=== PATIENT | female | born 2000 | race American Indian/Alaskan Native ===

== ENCOUNTER 2020-10-01 19:17 | Inpatient (IN) | payer MEDICAID ==
[2020-10-01] MEDS ORDERED: LACTATED RINGERS 1,000 ML ONE (20:14)
[2020-10-01] MEDS ORDERED: ePHEDrine SULFATE 50 MG/1 ML INJ IV PRN ×2 (20:23→20:26)
[2020-10-01] MEDS ORDERED: NALOXONE 2 MG/2 ML INJ IV PRN (20:23)
[2020-10-01] MEDS ORDERED: MINERAL OIL 30 ML ORAL LIQD PO PRN (20:26)
[2020-10-01] MEDS ORDERED: TERBUTALINE 1 MG/1 ML INJ SUB-Q PRN (20:26)
[2020-10-01] MEDS ORDERED: NalbUPHINE 10 MG/1 ML INJ IV PRN (20:26)
[2020-10-01] MEDS ORDERED: fentaNYL 100 MCG/2 ML INJ IV PRN (20:26)
--- NOTE | 2020-10-01 20:26 | History and Physical Report ---
History of Present Illness Date of examination: 10/01/20 Date of admission: 10/01/20 19:48 Chief complaint: painful ctx History of present illness: at 39.3wk by EDC 10/05/20 per pt report. Pt gives h/o LOF at 4pm and feeling ctx more painful. Admits to movement and denies headache. Denies vaginal bleeding. care at [place] [facility] and pt to deliver at [facility] in [place]. Pt desires epidural. Past History Past Medical History: no pertinent history Past Surgical History: no surgical history Social history: no significant social history - Obstetrical History Expected Date of Delivery: 10/05/20 Actual Gestation: 39 Week(s) 3 Day(s) : 2 Number of Living Children: 1 Medications and Allergies Allergies Allergy/AdvReac Type Severity Reaction Status Date / Time No Known Allergies Allergy Unverified 10/01/20 19:48 Review of Systems All systems: negative (painful ctx and LOF) - Vital Signs Vital signs: Vital Signs Pulse BP Pulse Ox 106 H 119/70 98 10/01/20 19:37 10/01/20 19:37 10/01/20 19:37 Temp Pulse Resp BP Pulse Ox 98.5 F 98 H 18 119/70 100 10/01/20 19:38 10/01/20 20:02 10/01/20 19:38 10/01/20 19:38 10/01/20 20:02 - Physical Exam Breasts: Positive: deferred Cardiovascular: Regular rate Lungs: Positive: Normal air movement Abdomen: Positive: normal appearance, soft Genitourinary (Female): Positive: normal external genitalia Vulva: both: normal Vagina: Positive: normal moisture Uterus: Positive: enlarged (non-tender, gravid) - Obstetrical FHR: category 1 Uterine Contraction Monitor Mode: External Cervical Dilatation: 5 (repeat exam unchanged by me when pt c/o pelvic pressure) Cervical Effacement Percentage: 90 station: -1 now, previously -2 per triage nurse Uterine Contraction Pattern: Irregular Uterine Contraction Intensity: Moderate Results Result Diagrams: 10/01/20 20:20 All other labs normal. Assessment and Plan Term IUP in active labor, GBS unknown and SROM with nitrazene positive per ER nurse 1. Admit to labor and delivery and obtain records 2. If not available, then with check gestational age by ultrasound here at [facility] 3. May have epidural when labs are ready and anesthesiologist already notified 4. Will augment labor when pt comfortable Plan of care discussed with pt; all questions encouraged and answered
[2020-10-01 20:43] LABS: Hematocrit 33.8 % (30.3-42.9); Hemoglobin 11.6 gm/dl (10.1-14.3); Mean Corpuscular HGB Conc 34 % (30-34); Mean Corpuscular Volume 92 fl (79-97); Platelet Count 209 K/mm3 (140-440); Red Blood Count 3.69 M/mm3 (3.65-5.03)
[2020-10-01] MEDS ORDERED: fentaNYL-BUPIV 2 MCG/ML-0.125% 200 MCG/100 ML BAG EPIDURAL SCH (21:00)
[2020-10-01] MEDS ORDERED: OXYTOCIN DRIP 30 UNITS/500 ML BAG IV SCH ×2 (21:00)
--- NOTE | 2020-10-01 21:25 | Ultrasound Report ---
ULTRASOUND OBSTETRIC LIMITED INDICATION / CLINICAL INFORMATION: GESTATIONAL AGE. Clinical Gestational Age (GA) in weeks.days: 39.3 TECHNIQUE: Transabdominal. COMPARISON: None available. FINDINGS: NUMBER: Single PRESENTATION: cephalic MEASUREMENTS: - Biparietal Diameter = 9.0 cm = 36.3 weeks.days - Head Circumference = 32.9 cm = 37.3 weeks.days - Abdominal Circumference = 32.2 cm = 36.1 weeks.days - Femur Length = 7.3 cm = 37.1 weeks.days - Estimated Weight (in grams, if calculated): 2968 +/- 439 g - Heart Rate (beats per minute): 141 ADDITIONAL FINDINGS: None. AVERAGE ULTRASOUND AGE (AUA) in weeks.days = 36.6 IMPRESSION: 1. Single intrauterine with AUA of 36.6 weeks.days 2. No significant sonographic abnormality. Signer Name: Ralph Moya MD Signed: 10/01/2020 9:21 PM Workstation Name: [id number]
[2020-10-01] MEDS ORDERED: AMPICILLIN/NS 2 GM/100 ML 2 GM/100 ML BAG IV ONE (21:26)
[2020-10-01] MEDS ORDERED: miSOPROStol 200 MCG TAB PR PRN (21:26)
[2020-10-01] MEDS ORDERED: LIDOCAINE (2%) 20 MG/1 ML VIAL 20 ML MDV INFILTRATI ONE (21:26)
[2020-10-01] MEDS ORDERED: LACTATED RINGERS 1,000 ML IV SCH (21:30)
--- NOTE | 2020-10-01 21:31 | Anesthesia Consultation ---
Anesthesia Consult and Med Hx Date of service: 10/01/20 - Airway Anesthetic Teeth Evaluation: Good ROM Head & Neck: Adequate Mental/Hyoid Distance: Adequate Mallampati Class: Class II Intubation Access Assessment: Probably Good - Pulmonary Exam CTA: Yes - Cardiac Exam Cardiac Exam: RRR - Pre-Operative Health Status ASA Pre-Surgery Classification: ASA3 Proposed Anesthetic Plan: Epidural - Pulmonary Hx Asthma: No COPD: No Hx Pneumonia: No - Endocrine Hx End Stage Renal Disease: No - Other Systems Hx Alcohol Use: No Hx Obesity: Yes
--- NOTE | 2020-10-01 21:33 | Progress Note ---
Labor Epidural - Labor Epidural Start Time: 21:09 Stop Time: 21:23 Performed by:: NOEL KEEN Procedure: Patient is requesting epidural for labor pain. H&P, and labs reviewed. Procedure explained, questions answered, consent obtained. Patient in sitting position with blood pressure cuff and pulse ox on and working. Timeout performed immediately before start of procedure. Sterile chlorahexadine 0.5% prep/drape. 3 mL 1% lidocaine skin wheal at L[3]-L[4]. 18-gauge Hustead epidural needle advanced to [id number] with saline at 9 cm. 27-gauge spinal needle advanced until clear, free-flowing CSF. Intrathecal dexmedetomidine [5] mcg administered and needle removed. Epidural catheter unable to be threaded, needle + catheter removed together, 3 ml lidocaine injected at L2-3, Hustead advanced to SOHAIL saline at 9 cm, catheter threaded to 15 cm, negative aspiration for blood and csf, negative test dose 3 ml 1.5% lidocaine with epinephrine. Sterile steri-strips and tegaderm applied, followed by tape reinforcement. Patient tolerated procedure well.
--- NOTE | 2020-10-01 23:05 | Event Note ---
Date: 10/01/20 records obtained and HSVII noted and pt when asked with partner asleep whether she was taking any meds and now she admits she was taking the medicine starting with a "V". Pt has no lesions. Pt also asked if she received rhogam with Rh negative as confirmed in the records and she states yes. The remaining prenatals with HIV neg, Rubella immune, RPR non-reactive, Hep BsAg neg, Rh neg and rhogam received at 28.6wks and GBS negative. Normal 1hrgtt also seen. Pt is now comfortable with epidural in progress and pitocin started.
[2020-10-02 00:35] LABS: Amphetamine Screen,Urine PRESUMPTIVE NEGATIVE; Benzodiazepines Screen,Urine PRESUMPTIVE NEGATIVE; Cannabinoid Screen,Urine PRESUMPTIVE NEGATIVE; Cocaine Screen,Urine PRESUMPTIVE NEGATIVE; Methadone Screen,Urine PRESUMPTIVE NEGATIVE; Opiate Screen,Urine PRESUMPTIVE NEGATIVE
[2020-10-02] MEDS ORDERED: LIDOCAINE (2%) 20 MG/1 ML VIAL 20 ML MDV INFILTRATI ONE (01:43)
[2020-10-02] MEDS ORDERED: miSOPROStol 100 MCG TAB ONE (01:58)
--- NOTE | 2020-10-02 02:49 | Procedure Note ---
OB Delivery Note - Delivery Date of Delivery: 10/02/20 Surgeon: TEVIN KIRBY Estimated blood loss: 200cc - Vaginal Delivery presentation: vertex Delivery position: OA Intrapartum events: PROM->1hr before delivery Delivery augmentation: pitocin Delivery monitor: external FHT, external uterine Route of delivery: Delivery placenta: spontaneous Delivery cord: nuchal cord Episiotomy: none Delivery laceration: none Anesthesia: epidural Delivery comments: SAVD of viable female infant uncomplicated. placenta delivered spontaneously. Pt sustained no lacerations. pt given cytotec prophylaxis of 800mcg when she gave me the history now of previous delivery with heavy vaginal bleeding. Mom and baby stable and doing well. Peds present for delivery. - Infant A at 1 minute: 8 at 5 minutes: 9 Infant Gender: Female (wt 3315g)
[2020-10-02] MEDS ORDERED: MAGNESIUM HYDROXIDE (MOM) ORAL LIQD UDC PO PRN (05:25)
[2020-10-02] MEDS ORDERED: LANOLIN/ZINC/DIMETHICONE (LANSINOH) 7 GM TP PRN (05:25)
[2020-10-02] MEDS ORDERED: PROMETHAZINE 25 MG TAB PO PRN (05:25)
[2020-10-02] MEDS ORDERED: diphenhydrAMINE 25 MG CAP PO PRN (05:25)
[2020-10-02] MEDS ORDERED: ONDANSETRON 4 MG/2 ML INJ IV PRN (05:25)
[2020-10-02] MEDS ORDERED: WITCH HAZEL/ GLYCERIN PAD TP PRN (05:25)
[2020-10-02] MEDS ORDERED: PROMETHAZINE 25 MG RECT SUPP PR PRN (05:25)
[2020-10-02] MEDS ORDERED: OXYTOCIN DRIP 30 UNITS/500 ML BAG IV SCH (05:25)
[2020-10-02] MEDS ORDERED: oxyCODONE /ACETAMINOPHEN 5-325MG TAB PO PRN (05:25)
[2020-10-02] MEDS: IBUPROFEN 600 MG TAB PO SCH ×3 (05:37→17:45)
--- NOTE | 2020-10-02 09:04 | Post Anesthesia Evaluation ---
- Post Anesthesia Evaluation Patient Participated: Yes Airway Patent: Yes Stable Respiratory Function: Yes Nausea/Vomiting: No Temp > 96.8F: Yes Pain Manageable: Yes Adequeate Hydration: Yes Anesthesia Complications: No Block Receding Appropriately: Yes
[2020-10-02] MEDS: PRENATAL VIT27-FE FUMARATE-FOLIC ACID VIT TAB PO SCH (09:08)
[2020-10-02 15:41] LABS: Hematocrit 32.8 % (30.3-42.9)
[2020-10-03] MEDS: IBUPROFEN 600 MG TAB PO SCH (05:25)
--- NOTE | 2020-10-03 09:01 | Progress Note ---
Assessment and Plan A: S/P P: D/C home today if stable - Patient Problems (1) (normal spontaneous vaginal delivery) Current Visit: Yes Status: Acute Subjective - Subjective Date of service: 10/03/20 Principal diagnosis: s/p Patient reports: appetite normal, voiding normally, pain well controlled, ambulating normally [place]: doing well, bottle feeding Objective - Vital Signs Latest vital signs: Vital Signs Temp Pulse Resp BP Pulse Ox 10/03/20 08:03 97.9 F 67 18 107/62 97 10/03/20 01:02 98.6 F 64 18 113/55 98 10/02/20 16:10 98.0 F 68 18 113/76 98 Intake and Output 10/02/20 10/03/20 10/03/20 22:59 06:59 14:59 Intake Total 360 300 Balance 360 300 Intake: Intake, Free Water 360 300 Other: # Voids Void 2 2 - Exam Breasts: Present: normal Abdomen: Present: normal appearance, soft, normal bowel sounds Vulva: both: normal Uterus: Present: normal, firm, fundal height below umbilicus Extremities: Present: normal
--- NOTE | 2020-10-03 09:08 | Discharge Summary ---
Providers - Providers Date of Admission: 10/01/20 19:48 Date of discharge: 10/03/20 Attending physician: TEVIN KIRBY Primary care physician: SHEET FINISHER Hospitalization Reason for admission: active labor, IUP at term Delivery: Episiotomy: none Laceration: none Other procedures: none complications: none Discharge diagnosis: IUP at term delivered [place] baby: female Hospital course: Pt was admitted to [facility] in active labor and had a w/o pp complications. See H&P, delivery summary, and pp notes. Condition at discharge: Stable Disposition: DC-01 TO HOME OR SELFCARE - Discharge Diagnoses (1) (normal spontaneous vaginal delivery) Status: Acute Plan - Discharge Medications Prescriptions: Ibuprofen [Ibu-200] 600 mg PO Q6HR PRN #60 tablet PRN Reason: Pain, Moderate (4-6) - Provider Discharge Summary Additional instructions: [] Smoking cessation referral if applicable(refer to patient education folder for contact #) [] Refer to [facility]'s [facility] Booklet Call your doctor immediately for: * Fever > 100.5 * Heavy vaginal bleeding ( >1 pad per hour) * Severe persistent headache * Shortness of breath * Reddened, hot, painful area to leg or breast * Drainage or odor from incision. * Keep incision clean and dry at all times and follow doctor's instructions regarding bathing/showering - Follow up plan Follow up: PRIMARY CARE, [Primary Care Provider] - 6 Weeks
[2020-10-03] MEDS: PRENATAL VIT27-FE FUMARATE-FOLIC ACID VIT TAB PO SCH (09:39)
[2020-10-03 17:26] VITALS: BP 117/58
== END 2020-10-03 12:30 | disposition home or self-care (01) | DRG 774 ==
LOC: TRG 19:17 → APU 19:25 → LD 19:48 → OBSVTOIN 19:48 → TRG 19:48 → OB 10-02 04:15
PROVIDERS: ADMIT Obstetrics & Gynecology; ATTEND Obstetrics & Gynecology
PROC: 10E0XZZ Delivery of Products of Conception, External Approach (ICD-10-PCS; principal; 2020-10-02)
PROC: 3E0R3BZ Introduction of Anesthetic Agent into Spinal Canal, Percutaneous Approach (ICD-10-PCS; 2020-10-02)
PROC: 00HU33Z Insertion of Infusion Device into Spinal Canal, Percutaneous Approach (ICD-10-PCS; 2020-10-02)
DX: O69.81X0 Labor and delivery complicated by cord around neck, without compression, not applicable or unspecified (principal); O98.52 Other viral diseases complicating childbirth; O42.02 Full-term premature rupture of membranes, onset of labor within 24 hours of rupture; Z3A.39 39 weeks gestation of pregnancy; Z37.0 Single live birth; Z20.822 Contact with and (suspected) exposure to COVID-19; B00.9 Herpesviral infection, unspecified
CPT/HCPCS: 36415; 59025; 76816; 80307; 85014; 85018; 85027; 86850; 86900; 86901; G0378; J0290; J2590; J7120; U0003

== ENCOUNTER 2021-03-13 15:05 | Emergency (ER) | payer MEDICAID ==
[2021-03-13 16:38] VITALS: BP 133/85
--- NOTE | 2021-03-13 16:53 | Emergency Department Report ---
- General Chief Complaint: Pain General Stated Complaint: FLU SYMPTOMS Time Seen by Provider: 03/13/21 16:40 Source: patient Mode of arrival: Ambulatory Limitations: No Limitations - History of Present Illness Initial Comments: Patient is a 20-year-old female presents emergency with complaints of generalized body aches that began yesterday. She has associated chills, sweats, nausea, vomiting, sore throat, nasal congestion, rhinorrhea. She states that she has Zofran to help with her vomiting but states it gives her a headache so therefore she does not like to take it. She denies any fever, diarrhea, cough, shortness of breath, chest pain. Patient is currently 14 weeks and her SENIOR DESIGNER/ART DIRECTOR is in [facility]. He states that she has an appointment with her SENIOR DESIGNER/ART DIRECTOR on 03/16/2021. She has not been vaccinated for COVID-19. No past medical history. No allergies to medications. Patient states that she went to another emergency room yesterday and was given a prescription for penicillin but states that she was not diagnosed with anything. - Related Data Previous Rx's Medication Instructions Recorded Last Taken Type Ibuprofen [Ibu-200] 600 mg PO Q6HR PRN #60 tablet 10/03/20 Unknown Rx Fluticasone [Flonase] 1 spray NS QDAY #1 bottle 03/13/21 Unknown Rx Metoclopramide [Reglan] 10 mg PO Q8HR PRN #14 tab 03/13/21 Unknown Rx guaiFENesin ER [Mucinex ER] 600 mg PO Q12H #12 tablet.er 03/13/21 Unknown Rx Allergies Allergy/AdvReac Type Severity Reaction Status Date / Time No Known Allergies Allergy Verified 03/13/21 16:33 ED Review of Systems ROS: Stated complaint: FLU SYMPTOMS Other details as noted in HPI Comment: All other systems reviewed and negative ED Past Medical Hx - Past Medical History Previous Medical History?: No Hx Congestive Heart Failure: No Hx Diabetes: No Hx Asthma: No Hx COPD: No - Social History Smoking Status: Never Smoker - Medications Home Medications: Home Medications Medication Instructions Recorded Confirmed Last Taken Type Ibuprofen [Ibu-200] 600 mg PO Q6HR PRN #60 tablet 10/03/20 Unknown Rx Fluticasone [Flonase] 1 spray NS QDAY #1 bottle 03/13/21 Unknown Rx Metoclopramide [Reglan] 10 mg PO Q8HR PRN #14 tab 03/13/21 Unknown Rx guaiFENesin ER [Mucinex ER] 600 mg PO Q12H #12 tablet.er 03/13/21 Unknown Rx ED Physical Exam - General Limitations: No Limitations General appearance: alert, in no apparent distress - Head Head exam: Present: atraumatic, normocephalic - Eye Eye exam: Present: normal appearance - ENT ENT exam: Present: normal orophraynx, mucous membranes moist, TM's normal bilaterally, normal external ear exam, other (clear rhinorrhea and edematous nasal turbinates, no sinus ttp bilaterally) - Neck Neck exam: Present: full ROM. Absent: meningismus - Respiratory Respiratory exam: Present: normal lung sounds bilaterally. Absent: respiratory distress, wheezes, rales, rhonchi, stridor, chest wall tenderness, accessory muscle use, decreased breath sounds, prolonged expiratory - Cardiovascular Cardiovascular Exam: Present: regular rate, normal rhythm, normal heart sounds. Absent: systolic murmur, diastolic murmur, rubs, gallop - Neurological Exam Neurological exam: Present: alert, oriented X3 - Psychiatric Psychiatric exam: Present: normal affect, normal mood - Skin Skin exam: Present: warm, dry, intact ED Course Vital Signs 03/13/21 16:36 Temperature 98.1 F Pulse Rate 103 H Respiratory 17 Rate Blood Pressure 133/85 O2 Sat by Pulse 98 Oximetry ED Medical Decision Making - Medical Decision Making Patient is a 20-year-old female presents emergency with complaints of generalized body aches that began yesterday. She has associated chills, sweats, nausea, vomiting, sore throat, nasal congestion, rhinorrhea. She states that she has Zofran to help with her vomiting but states it gives her a headache so therefore she does not like to take it. She denies any fever, diarrhea, cough, shortness of breath, chest pain. Patient is currently 14 weeks and her SENIOR DESIGNER/ART DIRECTOR is in [facility]. He states that she has an appointment with her SENIOR DESIGNER/ART DIRECTOR on 03/16/2021. She has not been vaccinated for COVID-19. No past medical history. No allergies to medications. Patient states that she went to another emergency room yesterday and was given a prescription for penicillin but states that she was not diagnosed with anything. Vitals are stable. Breath sounds are clear bilaterally, no wheezing, no rales, no rhonchi, normal oropharynx, normal TMs and canals. No clinical signs of bacterial pneumonia or bacterial bronchitis. symptoms appear consistent with URI. Patient has no indications for antibiotic therapy at this time. heart tones performed by Tammi charge nurse without any complications. Discussed supportive care and symptomatic treatment with patient. Discussed return precautions. Discussed the importance of outpatient follow-up for reexamination. Patient given prescription for medication. Advised patient Please take medication as prescribed. Increase your water intake. Follow-up with your SENIOR DESIGNER/ART DIRECTOR. Return to emergency room immediately for any new or worsening symptoms. Recommend outpatient COVID-19 testing and if positive will need to self quarantine for 10 days from onset of symptoms. Critical care attestation.: If time is entered above; I have spent that time in minutes in the direct care of this critically ill patient, excluding procedure time. ED Disposition Clinical Impression: Upper respiratory infection Qualifiers: URI type: unspecified URI Qualified Code(s): J06.9 - Acute upper respiratory infection, unspecified Disposition: 01 HOME / SELF CARE / HOMELESS Is pt being admited?: No Does the pt Need Aspirin: No Condition: Stable Instructions: Viral Respiratory Infection Additional Instructions: Please take medication as prescribed. Increase your water intake. Follow-up with your SENIOR DESIGNER/ART DIRECTOR. Return to emergency room immediately for any new or worsening symptoms. Recommend outpatient COVID-19 testing and if positive will need to self quarantine for 10 days from onset of symptoms. Prescriptions: Fluticasone [Flonase] 1 spray NS QDAY #1 bottle guaiFENesin ER [Mucinex ER] 600 mg PO Q12H #12 tablet.er Metoclopramide [Reglan] 10 mg PO Q8HR PRN #14 tab PRN Reason: vomiting Referrals: your, injection maintenance technician [Other] - 2-3 Days Forms: Work/School Release Form(ED) Time of Disposition: 16:51 Print Language: URDU
== END 2021-03-13 18:59 | disposition home or self-care (01) ==
LOC: ED 15:05
DX: O99.512 Diseases of the respiratory system complicating pregnancy, second trimester (principal); J06.9 Acute upper respiratory infection, unspecified; M79.18 Myalgia, other site; Z3A.14 14 weeks gestation of pregnancy
CPT/HCPCS: 99282

== ENCOUNTER 2021-11-01 05:58 | Emergency (ER) | payer MEDICAID ==
[2021-11-01 06:02] VITALS: BP 133/83
== END 2021-11-01 07:00 | disposition left against medical advice (07) ==
LOC: ED 05:58
DX: K08.89 Other specified disorders of teeth and supporting structures (principal); Z53.21 Procedure and treatment not carried out due to patient leaving prior to being seen by health care provider